=== PATIENT | female | born 1965 | race Caucasian/White ===

== ENCOUNTER 2017-03-06 12:41 | Emergency (ER) | payer MEDICARE ==
[~2017-03-06] VITALS: Ht 167.6 cm; Wt 117.8 kg
[~2017-03-06 12:41] MED LIST: ACET325T26 PO; CELE100C PO; CITA40TA12 PO; DIAZ5TAB PO; DOCU100C8 PO; FURO-92 PO; LEVO175T2 PO; METH-356 PO; METH40TA3 PO; OMEP40CA3 PO; OMEP40CA6 PO; OXYC-302 PO; POTA10TA31 PO; POTA15TA2 PO; RIVA10TA PO; RIVA20TA PO; ZOLP10TA PO
[2017-03-06] MEDS ORDERED: SODIUM CHLORIDE FLUSH 10ML SYR IVF ONE (13:00)
[2017-03-06] MEDS ORDERED: ASPIRIN 81 MG TABLET CHEW PO ONE (13:00)
[2017-03-06 13:27] LABS: BLOOD UREA NITROGEN 16 mg/dL (7-18)
[2017-03-06] MEDS ORDERED: ASPIRIN 81 MG TABLET CHEW ONE (13:30)
[2017-03-06 13:33] LABS: ASPARTATE AMINO TRANSFERASE 22 U/L (15-37)
[2017-03-06 13:36] LABS: IS PT STATUS REG ER OR PRE ER? YES
[2017-03-06] MEDS ORDERED: OMNIPAQUE 350 MG/ML, 150 ML BOTTLE ONE (15:29)
[2017-03-06 17:06] VITALS: BP 130/78
== END 2017-03-06 17:20 | disposition home or self-care (01) ==
LOC: ED 17:14
DX: R06.00 Dyspnea, unspecified (principal); R07.89 Other chest pain; Z86.711 Personal history of pulmonary embolism; Z87.891 Personal history of nicotine dependence
CPT/HCPCS: 36415; 71010; 71275; 80053; 84484; 85025; 85379; 93005; 99285; Q9967

== ENCOUNTER 2017-06-17 00:03 | Inpatient (IN) | payer MEDICARE ==
[~2017-06-17] VITALS: Ht 170.2 cm; Wt 119.4 kg
[~2017-06-17 00:03] MED LIST changes: +DOCU100C33 PO; -DOCU100C8 PO
[2017-06-17] MEDS ORDERED: ONDANSETRON 2MG/ML, 2ML ONE (00:40)
[2017-06-17] MEDS ORDERED: HYDROmorphone 1 MG/ML, 1ML ONE ×2 (00:40→03:11)
[2017-06-17] MEDS: HYDROmorphone 1 MG/ML, 1ML IVPush PRN ×2 (00:43→02:08)
[2017-06-17 00:52] LABS: HEMATOCRIT 45.4 % (34.6-47.8); WHITE BLOOD COUNT 13.4 x10^3/uL (3.4-10)
[2017-06-17] MEDS ORDERED: SODIUM CHLORIDE 0.9% 1,000ML IVBOLUS ONE (01:00)
[2017-06-17] MEDS ORDERED: ONDANSETRON 2MG/ML, 2ML IVPush ONE (01:00)
[2017-06-17] MEDS ORDERED: SODIUM CHLORIDE FLUSH 10ML SYR IVF ONE (01:00)
[2017-06-17 01:01] LABS: ASPARTATE AMINO TRANSFERASE 33 U/L (15-37); BLOOD UREA NITROGEN 13 mg/dL (7-18)
[2017-06-17] MEDS ORDERED: PROMETHAZINE 25 MG/ML, 1ML IM STA (02:08)
[2017-06-17] MEDS ORDERED: OMNIPAQUE 350 MG/ML, 100ML BOTTLE ONE (02:42)
[2017-06-17] MEDS ORDERED: SODIUM CHLORIDE 0.9%, 500ML IVBOLUS ONE (03:30)
[2017-06-17] MEDS ORDERED: hydrALAzine 20 MG/ML, 1ML IVPush PRN (03:30)
[2017-06-17] MEDS ORDERED: HYDROmorphone 1 MG/ML, 1ML IV ONE (03:30)
[2017-06-17] MEDS: HYDROmorphone 2 MG/ML, 1ML IVPush PRN ×3 (05:06→15:48)
[2017-06-17] MEDS: SODIUM CHLORIDE 0.9% 1,000 ML IV SCH ×4 (05:09→22:03)
[2017-06-17 05:10] VITALS: BP 125/85
[2017-06-17 08:33] VITALS: BP 120/79
[2017-06-17] MEDS: METOCLOPRAMIDE 5 MG/ML, 2ML IVPush SCH ×3 (09:27→22:04)
[2017-06-17] MEDS: FAMOTIDINE 20 MG/2 ML IVPush SCH ×2 (09:28→22:04)
[2017-06-17] MEDS: ENOXAPARIN 40 MG/0.4 ML SQ SCH (09:28)
[2017-06-17 13:15] VITALS: BP 117/72
[2017-06-17] MEDS: LORazepam 2 MG/ML, 1ML IVPush PRN (17:16)
[2017-06-17 20:24] VITALS: BP 131/81
[2017-06-18] MEDS: LORazepam 2 MG/ML, 1ML IVPush PRN ×5 (00:50→22:12)
[2017-06-18 03:10] VITALS: BP 141/85
[2017-06-18] MEDS: METOCLOPRAMIDE 5 MG/ML, 2ML IVPush SCH ×4 (03:14→22:01)
[2017-06-18] MEDS: SODIUM CHLORIDE 0.9% 1,000 ML IV SCH ×4 (03:14→20:00)
[2017-06-18 05:08] LABS: HEMATOCRIT 38.7 % (34.6-47.8); HEMOGLOBIN 12.8 g/dL (11.7-16.4); WHITE BLOOD COUNT 8.5 x10^3/uL (3.4-10)
[2017-06-18 05:20] LABS: ASPARTATE AMINO TRANSFERASE 19 U/L (15-37); BLOOD UREA NITROGEN 9 mg/dL (7-18)
[2017-06-18] MEDS: ENOXAPARIN 40 MG/0.4 ML SQ SCH (07:50)
[2017-06-18] MEDS: FAMOTIDINE 20 MG/2 ML IVPush SCH ×2 (07:51→22:01)
[2017-06-18 08:00] VITALS: BP 125/79
[2017-06-18] MEDS: MORPHINE SULFATE 4 MG/ML, 1ML IVPush PRN (13:57)
[2017-06-18] MEDS: ONDANSETRON 2MG/ML, 2ML IVPush PRN (14:15)
[2017-06-18 14:36] VITALS: BP 130/73
[2017-06-18 20:13] VITALS: BP 118/68
[2017-06-19] MEDS: MORPHINE SULFATE 4 MG/ML, 1ML IVPush PRN ×5 (01:23→18:20)
[2017-06-19] MEDS: SODIUM CHLORIDE 0.9% 1,000 ML IV SCH (01:26)
[2017-06-19 02:19] VITALS: BP 121/71
[2017-06-19] MEDS: ONDANSETRON 2MG/ML, 2ML IVPush PRN ×2 (03:12→13:53)
[2017-06-19] MEDS: LORazepam 2 MG/ML, 1ML IVPush PRN ×3 (03:12→14:43)
[2017-06-19] MEDS: METOCLOPRAMIDE 5 MG/ML, 2ML IVPush SCH ×3 (03:19→16:03)
[2017-06-19 05:24] LABS: BLOOD UREA NITROGEN 8 mg/dL (7-18)
[2017-06-19 05:25] LABS: HEMATOCRIT 36.5 % (34.6-47.8); HEMOGLOBIN 12.2 g/dL (11.7-16.4); WHITE BLOOD COUNT 10.4 x10^3/uL (3.4-10)
[2017-06-19] MEDS: LEVOTHYROXINE 100 MCG INJ IVPush SCH (06:54)
[2017-06-19 07:20] VITALS: BP 137/83
[2017-06-19] MEDS: ENOXAPARIN 40 MG/0.4 ML SQ SCH (08:12)
[2017-06-19] MEDS: BISACODYL 10 MG SUPP PR SCH (10:04)
[2017-06-19 13:02] VITALS: BP 126/67
[2017-06-19 18:43] VITALS: BP 149/88
[2017-06-19] MEDS ORDERED: LORazepam 1MG TABLET ONE (21:45)
[2017-06-19] MEDS: OXYcodone IR 5MG TABLET PO PRN (21:47)
[2017-06-19] MEDS: LORazepam 0.5MG TABLET PO PRN (21:48)
[2017-06-20 00:37] VITALS: BP 148/83
[2017-06-20] MEDS ORDERED: ZOLPIDEM 10MG TABLET PO PRN (01:00)
[2017-06-20] MEDS: METOCLOPRAMIDE 5 MG/ML, 2ML IVPush SCH ×5 (01:18→19:16)
[2017-06-20] MEDS: SODIUM CHLORIDE 0.9% 1,000 ML IV SCH ×5 (01:18→19:16)
[2017-06-20] MEDS: LEVOTHYROXINE 100 MCG INJ IVPush SCH ×2 (01:18→19:16)
[2017-06-20 05:36] LABS: HEMATOCRIT 38.2 % (34.6-47.8); WHITE BLOOD COUNT 9.3 x10^3/uL (3.4-10)
[2017-06-20 05:51] LABS: BLOOD UREA NITROGEN 7 mg/dL (7-18)
[2017-06-20] MEDS ORDERED: LORazepam 1MG TABLET ONE (08:44)
[2017-06-20] MEDS: ENOXAPARIN 40 MG/0.4 ML SQ SCH (08:46)
[2017-06-20] MEDS: OXYcodone IR 5MG TABLET PO PRN (08:49)
[2017-06-20] MEDS: LORazepam 0.5MG TABLET PO PRN (08:51)
[2017-06-20 09:00] VITALS: BP 143/87
[2017-06-20] MEDS: BISACODYL 10 MG SUPP PR SCH (09:00)
[2017-06-20] MEDS ORDERED: METHADONE 40 MG TABLET.SOL PO PRN (12:00)
[2017-06-20] MEDS: METHADONE 40 MG TABLET.SOL PO PRN (13:36)
[2017-06-20 14:20] VITALS: BP 150/89
[2017-06-20 18:53] VITALS: BP 134/86
[2017-06-20] MEDS: OMEPRAZOLE 20 MG CAPSULE.DR PO SCH (20:44)
[2017-06-20] MEDS: ZOLPIDEM 10MG TABLET PO SCH (20:44)
[2017-06-20] MEDS: BUTALB/APAP/CAFFEINE 50MG/325MG/40MG PO PRN (20:51)
[2017-06-21 03:01] VITALS: BP 125/77
[2017-06-21] MEDS: METHADONE 40 MG TABLET.SOL PO PRN ×2 (04:59→17:30)
[2017-06-21] MEDS: BUTALB/APAP/CAFFEINE 50MG/325MG/40MG PO PRN (04:59)
[2017-06-21] MEDS: LEVOTHYROXINE 175 MCG TABLET PO SCH (04:59)
[2017-06-21 05:13] LABS: HEMATOCRIT 39.5 % (34.6-47.8); HEMOGLOBIN 13.3 g/dL (11.7-16.4); WHITE BLOOD COUNT 7.6 x10^3/uL (3.4-10)
[2017-06-21 05:23] LABS: BLOOD UREA NITROGEN 7 mg/dL (7-18)
[2017-06-21 07:02] VITALS: BP 114/79
[2017-06-21] MEDS: BISACODYL 10 MG SUPP PR SCH (09:00)
[2017-06-21] MEDS: ENOXAPARIN 40 MG/0.4 ML SQ SCH (10:11)
[2017-06-21] MEDS: FUROSEMIDE 40 MG TABLET PO SCH (10:11)
[2017-06-21] MEDS: CITALOPRAM 20 MG TABLET PO SCH (10:11)
[2017-06-21] MEDS: POTASSIUM CHLORIDE 10 MEQ TABLET.ER PO SCH (10:11)
[2017-06-21] MEDS: METOCLOPRAMIDE 5 MG/ML, 2ML IVPush SCH (12:00)
[2017-06-21] MEDS: SODIUM CHLORIDE 0.9% 1,000 ML IV SCH ×2 (12:30→19:10)
[2017-06-21] MEDS ORDERED: LORazepam 1MG TABLET ONE (13:27)
[2017-06-21] MEDS: LORazepam 0.5MG TABLET PO PRN (13:29)
[2017-06-21 14:29] VITALS: BP 117/77
[2017-06-21 19:06] VITALS: BP 127/82
[2017-06-21] MEDS: ZOLPIDEM 10MG TABLET PO SCH (22:06)
[2017-06-21] MEDS: OMEPRAZOLE 20 MG CAPSULE.DR PO SCH (22:07)
[2017-06-22] MEDS: LORazepam 0.5MG TABLET PO PRN (00:11)
[2017-06-22] MEDS: SODIUM CHLORIDE 0.9% 1,000 ML IV SCH ×2 (01:50→08:30)
[2017-06-22 02:34] VITALS: BP 176/89
[2017-06-22 04:45] LABS: BLOOD UREA NITROGEN 7 mg/dL (7-18)
[2017-06-22 04:46] LABS: HEMATOCRIT 41.8 % (34.6-47.8); WHITE BLOOD COUNT 7.7 x10^3/uL (3.4-10)
[2017-06-22] MEDS: LEVOTHYROXINE 100 MCG INJ IVPush SCH (05:57)
[2017-06-22] MEDS: LEVOTHYROXINE 175 MCG TABLET PO SCH (05:57)
[2017-06-22] MEDS: METHADONE 40 MG TABLET.SOL PO PRN (06:09)
[2017-06-22 06:58] VITALS: BP 117/78
[2017-06-22] MEDS: BISACODYL 10 MG SUPP PR SCH (09:00)
[2017-06-22] MEDS: FUROSEMIDE 40 MG TABLET PO SCH (09:10)
[2017-06-22] MEDS: CITALOPRAM 20 MG TABLET PO SCH (09:10)
[2017-06-22] MEDS: POTASSIUM CHLORIDE 10 MEQ TABLET.ER PO SCH (09:10)
[2017-06-22] MEDS: ENOXAPARIN 40 MG/0.4 ML SQ SCH (09:14)
[2017-06-22 11:01] VITALS: BP 125/86
== END 2017-06-22 11:18 | disposition home or self-care (01) | DRG 388 ==
LOC: ED 01:01 → EDIP 03:07 → 4NOR 04:35 → DCLOUNGE 06-22 11:10
PROVIDERS: ADMIT Internal Medicine; ATTEND Internal Medicine
DX: K56.609 Unspecified intestinal obstruction, unspecified as to partial versus complete obstruction (principal); N17.0 Acute kidney failure with tubular necrosis; Z68.41 Body mass index [BMI] 40.0-44.9, adult; E44.1 Mild protein-calorie malnutrition; E87.6 Hypokalemia; D72.829 Elevated white blood cell count, unspecified; E03.9 Hypothyroidism, unspecified; E66.01 Morbid (severe) obesity due to excess calories; F32.9 Major depressive disorder, single episode, unspecified; G47.00 Insomnia, unspecified; G89.4 Chronic pain syndrome; K21.9 Gastro-esophageal reflux disease without esophagitis; K59.09 Other constipation; R09.02 Hypoxemia; Z96.652 Presence of left artificial knee joint; Z79.891 Long term (current) use of opiate analgesic; Z86.711 Personal history of pulmonary embolism; Z90.49 Acquired absence of other specified parts of digestive tract
CPT/HCPCS: 36415; 74000; 74177; 74250; 80048; 80053; 81003; 83690; 83735; 84100; 84439; 84443; 85025; 96361; 96372; 96374; 96375; 96376; J1170; J1650; J2405; J2550; Q9967; J2060; J2765; J7030; J7040; S0028

== ENCOUNTER 2017-10-05 05:46 | Emergency (ER) | payer MEDICARE ==
[~2017-10-05] VITALS: Ht 170.2 cm; Wt 102.0 kg
[2017-10-05] MEDS ORDERED: morphine SULFATE 10 MG/ML, 1ML IVPush ONE (06:30)
[2017-10-05] MEDS ORDERED: SODIUM CHLORIDE FLUSH 10ML SYR IVF ONE (06:30)
[2017-10-05] MEDS ORDERED: ONDANSETRON 2MG/ML, 2ML IVPush ONE (06:30)
[2017-10-05 06:47] LABS: BASOPHILS # (AUTO) 0.01 x10^3/uL (0-0.1); BASOPHILS % (AUTO) 0 % (0-1); EOSINOPHILS # (AUTO) 0.07 x10^3/uL (0-0.4); EOSINOPHILS % (AUTO) 1 % (1-7); LYMPHOCYTES # (AUTO) 0.69 x10^3/uL (1-3.4); LYMPHOCYTES % (AUTO) 5 % (22-44); MD NO; MEAN CORPUSCULAR HEMOGLOBIN 29.3 pg (27.0-34.8); MEAN CORPUSCULAR HGB CONC 32.9 g/dL (32.4-35.8); MEAN CORPUSCULAR VOLUME 89.1 fL (80-100); MEAN PLATELET VOLUME 7.7 fL (7.4-10.4); MONOCYTES # (AUTO) 0.38 x10^3/uL (0.2-0.8); MONOCYTES % (AUTO) 3 % (2-9); NEUTROPHILS # (AUTO) 12.56 x10^3/uL (1.8-6.8); NEUTROPHILS % (AUTO) 92 % (42-75); PLATELET COUNT 260 x10^3/uL (130-400)
[2017-10-05 06:48] LABS: INTERNATIONAL NORMALIZED RATIO 0.97 (0.93-1.1)
[2017-10-05 06:53] LABS: ALANINE AMINOTRANSFERASE 31 U/L (12-78); ALBUMIN 3.4 g/dL (3.4-5.0); ANION GAP 7 mmol/L (5-15); CALCIUM 8.3 mg/dL (8.5-10.1); CHLORIDE 99 mmol/L (98-107); CREATININE 0.98 mg/dL (0.55-1.02)
[2017-10-05 06:55] LABS: ALKALINE PHOSPHATASE 81 U/L (45-117); BILIRUBIN,TOTAL 0.3 mg/dL (0.2-1.0); TOTAL PROTEIN 6.9 g/dL (6.4-8.2)
[2017-10-05 07:19] LABS: MICROSCOPIC AUTO
[2017-10-05 07:31] LABS: CULTURE INDICATED? YES
[2017-10-05 07:39] VITALS: BP 113/67
== END 2017-10-05 07:58 | disposition home or self-care (01) ==
LOC: ED 06:45
DX: R10.84 Generalized abdominal pain (principal); G89.29 Other chronic pain; E03.9 Hypothyroidism, unspecified; Z90.49 Acquired absence of other specified parts of digestive tract
CPT/HCPCS: 36415; 74021; 80053; 81001; 83690; 85025; 85610; 87086; 93005; 99285

== ENCOUNTER → 2018-01-09 | Outpatient (CLI) | payer MEDICARE | END | disposition home or self-care (01) | LOC: CFH 14:01 | PROVIDERS: ATTEND Neurological Surgery | DX: M41.9 Scoliosis, unspecified (principal); M54.5 Low back pain; M25.551 Pain in right hip; G89.29 Other chronic pain | CPT/HCPCS: 72146; 72148 ==